=== PATIENT | male | born 1995 | race Caucasian/White ===

== ENCOUNTER 2018-11-26 20:57 | Emergency (ER) | payer OTHER ==
[2018-11-26] MEDS ORDERED: cefTRIAXone 250 MG Vial IM ONE (21:36)
[2018-11-26] MEDS ORDERED: Azithromycin 250 MG Tab PO ONE (21:36)
--- NOTE | 2018-11-26 21:45 | EDM.PDOC ---
<Helen Zapien - Last Filed: 11/26/18 21:38> ED HPI GENERAL MEDICAL PROBLEM - General Chief Complaint: Genitourinary Problem Stated Complaint: POSS STD Time Seen by Provider: 11/26/18 21:20 Source of Information: Reports: Patient, RN Notes Reviewed History Limitations: Reports: No Limitations - History of Present Illness INITIAL COMMENTS - FREE TEXT/NARRATIVE: Juanito is a 23 year old male who presents with penile drainage for the past month. Patient states that he "cheated on his girlfriend" and then developed pain with urination and green/yellow/white purulent drainage from his urethra. He states that his girlfriend came to [place] to visit him and they had intercourse. The girlfriend then notified the patient that upon her return to [place], she was tested for STI's and was positive for GC/Chlamydia. Patient would like to be tested for STI's and receive treatment. He denies feeling ill: no fevers, chills, or night sweats. He denies any abdominal pain. He denies any genital lesions, skin changes, or oral lesions. He denies any joint pain or swelling. - Related Data Allergies Allergy/AdvReac Type Severity Reaction Status Date / Time No Known Allergies Allergy Verified 11/26/18 21:11 Home Meds: Home Meds . [No Known Home Meds] 11/26/18 [History] Past Medical History - Past Health History Medical/Surgical History: Denies Medical/Surgical History Social & Family History - Tobacco Use Smoking Status *Q: Current Every Day Smoker Years of Tobacco use: 4 Packs/Tins Daily: 1 - Caffeine Use Caffeine Use: Reports: Coffee - Recreational Drug Use Recreational Drug Use: No ED ROS GENERAL - Review of Systems Review Of Systems: ROS reveals no pertinent complaints other than HPI. ED EXAM, RENAL/ - Physical Exam Exam: See Below Exam Limited By: No Limitations General Appearance: Alert, WD/WN, No Apparent Distress Eye Exam: Bilateral Eye: EOMI, PERRL Ears: Normal External Exam, Hearing Grossly Normal Throat/Mouth: Normal Inspection, Normal Lips, Normal Teeth, Normal Gums, Normal Oropharynx Head: Atraumatic, Normocephalic Neck: Normal Inspection, Supple, Non-Tender, Full Range of Motion Respiratory/Chest: No Respiratory Distress, Lungs Clear, Normal Breath Sounds Cardiovascular: Normal Peripheral Pulses, Regular Rate, Rhythm, No Edema, No Gallop, No Murmur GI/Abdominal: Soft, Non-Tender (Male) Exam: Deferred Rectal (Males) Exam: Deferred Back Exam: Normal Inspection. No: CVA Tenderness (L), CVA Tenderness (R) Extremities: Normal Inspection, Normal Range of Motion, Non-Tender. No: Joint Swelling Neurological: Alert, Oriented, Normal Cognition Psychiatric: Normal Affect, Normal Mood Skin Exam: Warm, Dry, Intact, Normal Color, No Rash Course - Vital Signs Last Recorded V/S: Last Vital Signs Temp 98.4 F 11/26/18 21:09 Pulse 84 11/26/18 21:09 Resp 16 11/26/18 21:09 BP 120/85 11/26/18 21:09 Pulse Ox 100 11/26/18 21:09 - Orders/Labs/Meds Orders: Active Orders 24 hr Category Date Time Status GC/CHLAMYDIA BY PCR [[facility]] Stat Lab 11/26/18 21:22 Received Labs: Laboratory Tests 11/26/18 Range/Units 21:37 Urine Color Yellow (Yellow) Urine Appearance Cloudy H (Clear) Urine pH 6.0 (5.0-8.0) Ur Specific [place] > or = 1.030 (1.005-1.030) Urine Protein 2+ H (Negative) Urine Glucose (UA) Negative (Negative) Urine Ketones Negative (Negative) Urine Occult Blood Trace-lysed H (Negative) Urine Nitrite Negative (Negative) Urine Bilirubin 1+ H (Negative) Urine Urobilinogen 0.2 (0.2-1.0) Ur Leukocyte Esterase Negative (Negative) Urine RBC >100 H (0-5) /hpf Urine WBC 0-5 (0-5) /hpf Ur Epithelial Cells 0-5 (0-5) /hpf Urine Bacteria Moderate H (FEW) /hpf Urine Mucus Not seen (FEW) /hpf Meds: Medications Discontinued Medications Generic Name Dose Route Start Last Admin Trade Name Freq PRN Reason Stop Dose Admin Azithromycin 1,000 mg 11/26/18 21:36 11/26/18 21:46 Zithromax PO 11/26/18 21:37 1,000 mg ONETIME ONE Administration Ceftriaxone Sodium 250 mg 11/26/18 21:36 11/26/18 21:47 Rocephin IM 11/26/18 21:37 250 mg ONETIME ONE Administration Departure - Departure Disposition: Home, Self-Care 01 Clinical Impression: STD exposure - Discharge Information Instructions: Sexually Transmitted Disease Referrals: PCP,None [Primary Care Provider] - Forms: ED Department Discharge Additional Instructions: Recommend full STD testing. [facility] is able to test for STD testing on a sliding scale fee basis. Call [phone] to schedule with them. No intercourse 1 week. Follow-up with family medicine if not much better within 2 weeks Please return to the ER for symptoms change or worsen. - My Orders Last 24 Hours: My Active Orders 11/26/18 21:22 GC/CHLAMYDIA BY PCR [[facility]] Stat - Assessment/Plan Last 24 Hours: My Active Orders 11/26/18 21:22 GC/CHLAMYDIA BY PCR [[facility]] Stat <Suyapa Simon - Last Filed: 11/26/18 23:50> ED HPI GENERAL MEDICAL PROBLEM - History of Present Illness INITIAL COMMENTS - FREE TEXT/NARRATIVE: I have seen the patient and agree with the HPI, ROS and PE as documented by COREY RodriguezS ED ROS GENERAL - Review of Systems Review Of Systems: ROS reveals no pertinent complaints other than HPI. ED EXAM, RENAL/ - Physical Exam Exam: See Below (Male) Exam: Deferred (per patient request) Rectal (Males) Exam: Deferred (per patient request) Course - Orders/Labs/Meds Labs: Laboratory Tests 11/26/18 Range/Units 21:37 Urine Color Yellow (Yellow) Urine Appearance Cloudy H (Clear) Urine pH 6.0 (5.0-8.0) Ur Specific [place] > or = 1.030 (1.005-1.030) Urine Protein 2+ H (Negative) Urine Glucose (UA) Negative (Negative) Urine Ketones Negative (Negative) Urine Occult Blood Trace-lysed H (Negative) Urine Nitrite Negative (Negative) Urine Bilirubin 1+ H (Negative) Urine Urobilinogen 0.2 (0.2-1.0) Ur Leukocyte Esterase Negative (Negative) Urine RBC >100 H (0-5) /hpf Urine WBC 0-5 (0-5) /hpf Ur Epithelial Cells 0-5 (0-5) /hpf Urine Bacteria Moderate H (FEW) /hpf Urine Mucus Not seen (FEW) /hpf - Re-Assessments/Exams Free Text/Narrative Re-Assessment/Exam: 11/26/18 21:52 I have seen the patient and agree with the HPI, ROS and PE as documented by SWAPNA Rodriguez. Given high likelihood of STDs will treat for gonorrhea and chlamydia. Recommend full STD testing at [facility]. Offered to patient this evening, due to costs concerns will go to local [facility] for testing. Discharge instructions as documented. 11/26/18 23:49 Lab called. + for both gonorrhea and chlamydia. Treated for both. Departure - Departure Time of Disposition: 21:54 Condition: Good - Discharge Information *PRESCRIPTION DRUG MONITORING PROGRAM REVIEWED*: No *COPY OF PRESCRIPTION DRUG MONITORING REPORT IN PATIENT JIMMY: No
[2018-11-26 23:20] LABS: C. TRACHOMATIS BY PCR DETECTED; N. GONORRHOEAE BY PCR DETECTED
== END 2018-11-26 22:08 | disposition home or self-care (01) ==
LOC: JD.ED 20:57
DX: Z20.2 Contact with and (suspected) exposure to infections with a predominantly sexual mode of transmission (principal); F17.210 Nicotine dependence, cigarettes, uncomplicated
CPT/HCPCS: 81001; 87491; 87591; 96372; 99283; A9270; J0696